=== PATIENT | female | born 1945 | race Caucasian/White ===

== ENCOUNTER 2021-12-10 08:12 | Day surgery (SDC) | payer MEDICARE, SELFPAY ==
[2021-12-02 11:39] VITALS: BMI 21.9
[2021-12-09 11:06] LABS: MANUAL DIFF FLAG NO
[2021-12-09 11:15] LABS: Basophils Absolute Auto 0.1 X10*3/uL (0.0-0.2); Basophils Percent Auto 0.8 % (0-2); Eosinophils Absolute Auto 0.3 X10*3/uL (0.0-0.4); Eosinophils Percent Auto 5.2 % (0-4); Hematocrit 37.2 % (37.0-47.0); Hemoglobin 11.3 g/dl (12.0-16.0); Imm Gran Abs Auto 0.04 X10*3/uL (0.00-0.03); Imm Gran Pct Auto 0.6 % (0.0-0.4); Lymphocytes Absolute Auto 1.4 X10*3/uL (1.2-4.9); Lymphocytes Percent Auto 22.6 % (20-40); Mean Corpuscular HGB Conc 30.4 g/dl (31.0-35.0); Mean Corpuscular Hemoglobin 26.7 pg (27.0-33.0); Mean Corpuscular Volume 87.9 fL (80.0-98.0); Mean Platelet Volume 9.8 fL (9.4-12.3); Monocytes Absolute Auto 0.7 X10*3/uL (0.1-1.2); Monocytes Percent Auto 10.6 % (2-11); Neutrophils Absolute Auto 3.7 x10*3/uL (2.0-8.3); Neutrophils Percent Auto 60.2 % (45-73); Platelet Count 333 X10*3/uL (160-400); Red Blood Count 4.23 X10*6/uL (4.20-5.50); Red Cell Distribution Width 14.6 % (11.0-16.0); White Blood Count 6.2 X10*3/uL (4.8-10.8)
[2021-12-09 11:26] LABS: Iron 43 mcg/dL (30-160); Percent Iron Saturation 15 % (15-50); Total Iron Binding Capacity 295 mcg/dL (228-428); Unsaturated Iron Binding 252 ug/dL
[2021-12-09 11:47] LABS: Ferritin 59 ng/mL (10-250)
--- NOTE | 2021-12-09 12:15 | P.CONAN_ITS ---
Documented by User: Gaby Alvarado NP 12/09/21 12:26 HPI - Anesthesia Eval Consult details Narrative: 76yo F for Upper Endoscopy T/C to patient. No allergy to propofol. 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 ? side effect of opioids. [facility] Past Medical History Medical History (Updated 12/10/21 @ 08:39 by Isela Pang, RN) Abdominal pain Benign tumor of submandibular gland Burning sensation of throat Heartburn Hoarseness Hyperlipidemia Osteoporosis Surgical History Surgical History (Updated 12/10/21 @ 08:39 by Isela Pang RN) Hx of colonoscopy Hx of inguinal hernia repair Social History Social History Advance Directives: No Advance Directives Information Provided: Yes Meds Allergies Allergy/AdvReac Type Severity Reaction Status Date / Time egg Allergy Unknown Verified 12/02/21 11:37 gluten Allergy Unknown Verified 12/02/21 11:37 lactose Allergy Unknown Verified 12/02/21 11:37 Penicillins Allergy Unknown Verified 12/02/21 11:37 procaine [From Novocain] Allergy Unknown Verified 12/02/21 11:37 12 hour nasal spray Allergy Unknown Uncoded 12/02/21 11:38 Exam Exam Date and Time: December 09, 2021 1215 Height,Weight and Vital Signs: Height 5 ft 3 in Weight 56.245 kg Pertinent Lab Results Pertinent Lab Results: Laboratory Tests 12/09/21 12/09/21 06:46 06:46 WBC 6.2 RBC 4.23 Hgb 11.3 L Hct 37.2 MCV 87.9 MCH 26.7 L MCHC 30.4 L RDW 14.6 Plt Count 333 MPV 9.8 Immature Gran % (Auto) 0.6 H Neut % (Auto) 60.2 Lymph % (Auto) 22.6 [place] % (Auto) 10.6 Eos % (Auto) 5.2 H Baso % (Auto) 0.8 Lymph # (Auto) 1.4 [place] # (Auto) 0.7 Eos # (Auto) 0.3 Baso # (Auto) 0.1 Abs Immat Gran (auto) 0.04 H Absolute Neuts (auto) 3.7 Absolute Nucleated RBC 0.000 Nucleated RBC % (auto) 0.0 Iron 43 TIBC 295 % Saturation 15 Unsat Iron Binding 252 Ferritin 59 Assessment and Plan Assessment Anesthesia Assessment: Chart Reviewed Documented by User: Jens Chandler MD 12/10/21 08:43 PMFSH Past Medical History Medical History (Updated 12/10/21 @ 08:39 by Isela Pang, RN) Abdominal pain Benign tumor of submandibular gland Burning sensation of throat Heartburn Hoarseness Hyperlipidemia Osteoporosis Family History Family history of problems with anesthesia: No Surgical History Surgical History (Updated 12/10/21 @ 08:39 by Isela Pang, RN) Hx of colonoscopy Hx of inguinal hernia repair History of Problems with Anesthesia: No Social History Social History Advance Directives: No Advance Directives Information Provided: Yes Meds Allergies Allergy/AdvReac Type Severity Reaction Status Date / Time egg Allergy Unknown Verified 12/02/21 11:37 gluten Allergy Unknown Verified 12/02/21 11:37 lactose Allergy Unknown Verified 12/02/21 11:37 Penicillins Allergy Unknown Verified 12/02/21 11:37 procaine [From Novocain] Allergy Unknown Verified 12/02/21 11:37 12 hour nasal spray Allergy Unknown Uncoded 12/02/21 11:38 Exam Airway Mallampati Class: II TM Dist: >3cm Neck ROM: Full Assessment and Plan Assessment Anesthesia Assessment: Anesthesia Plan Discussed Final Anesthetic Review Family History of Problems with Anesthesia: No History of Problems with Anesthesia: No NPO: Yes ASA Class: II Final Preanesthetic Review: No Changes in Pt Med Stat, Meds/Allgs Chart Reviewed, Consent Obtained/Reviewed and Anes Risks/Benef Reviewed Patient Risk: Low Procedure Risk: Low Anesthetic Plan Anesthetic Plan: MAC: Disposition: Standard PACU
[2021-12-10 08:52] VITALS: BP 155/68; PULSE 57; RESP 16; TEMP 36.1; O2SAT 96
[2021-12-10] MEDS: Lactated Ringers 1,000 ML 100 ML IVCONT (09:03)
--- NOTE | 2021-12-10 09:25 | MHC.SHP ---
Pre-Procedural Eval Section A Date of Service: 12/10/21 Section B Chief Complaint: reflux Details of Present Illness: see H&P nochanges Relevant Family History (Specify if Yes): No Relevant Social History: None Present Medications: None Medical History: No relevant PMH History of Previous Operations: No relevant previous surgery Allergies: Allergies Allergy/AdvReac Type Severity Reaction Status Date / Time egg Allergy Unknown Verified 12/10/21 08:44 gluten Allergy Unknown Verified 12/10/21 08:44 lactose Allergy Unknown Verified 12/10/21 08:44 Penicillins Allergy Unknown Verified 12/10/21 08:44 procaine [From Novocain] Allergy Unknown Verified 12/10/21 08:44 Review of Systems Sugical H&P ROS: Negative: Constitution, Cardiovascular, Respiratory, Neurological, Psychiatric, Hem-Onc, Allergic/Immunologic, Gastrointestinal, Genitourinary, Musculoskeletal, Integumentary, Endocrine and Eyes/Ears/Nose/Throat Exam Surgical H&P Exam: Normal: HEENT, Normal: Heart, Normal: Lungs, Normal: Extremities, Normal: Abdomen, Normal: Skin and Normal: Neurological Plan Diagnosis/Plan: Unchanged I have reviewed the history and physical and performed a pertinent physical examination on my patient. No changes have occurred unless specified.
[2021-12-10 09:43] VITALS: BP 141/64; PULSE 54; RESP 16; TEMP 36.6; O2SAT 100
--- NOTE | 2021-12-10 09:44 | P.BOP_ITS ---
Brief Operative Note Date of Service: 12/10/21 Pre-op diagnosis: gerd dysphagia Post-op diagnosis: same Procedure: egd Surgeon: Franklin Obregon Anesthesia: MAC Was an Customer Operations Specialist used for this Procedure?: No Estimated blood loss (mL): 2 Pathology: other (bxs antrum, egj) Condition: stable Disposition: PACU
[2021-12-10 09:58] VITALS: BP 152/66; PULSE 57; RESP 16; TEMP 36.6; O2SAT 100
--- NOTE | 2021-12-10 13:00 | OP_ITS ---
SURGEON: Franklin Obregon MD INDICATIONS: Gastroesophageal reflux disease and dysphagia. PREOPERATIVE DIAGNOSIS: POSTOPERATIVE DIAGNOSIS: PROCEDURE PERFORMED: ESTIMATED BLOOD LOSS: COMPLICATIONS: ANESTHESIA: ASSISTANTS: SPECIMENS: PROCEDURE: Upper endoscopy with biopsy. MEDICATIONS: Monitored anesthesia care. DESCRIPTION OF PROCEDURE: History and physical performed. The risks and benefits of the procedure were explained to the patient. Informed consent was obtained. The patient was placed in the left lateral decubitus position. The Olympus video gastroscope was introduced into the esophagus, stomach, and duodenum. Examination was performed. The scope was removed. She tolerated the procedure well and was taken to recovery in stable condition. FINDINGS: Esophagus: The esophagus was normal. There was no esophagitis. Biopsies were obtained from the EG junction. Stomach: The stomach was normal. There was no gastritis and no ulcer. Duodenum: The bulb and second portion were normal. Biopsies were obtained from the antrum of the stomach. IMPRESSION: Gastroesophageal reflux disease. RECOMMENDATION: Follow up the biopsy results. MD REILLY Joyner/MODL / [id number]
== END 2021-12-10 10:19 | disposition home or self-care (01) ==
PROVIDERS: Internal Medicine; PCP Internal Medicine Geriatric Medicine; Visit Provider Internal Medicine Gastroenterology
PROC: 0DJ08ZZ Inspection of Upper Intestinal Tract, Via Natural or Artificial Opening Endoscopic (ICD-10-PCS; CPT 43235; principal; 2021-12-10 09:30)
DX: K21.9 Gastro-esophageal reflux disease without esophagitis (principal); R13.10 Dysphagia, unspecified; R10.9 Unspecified abdominal pain; E78.5 Hyperlipidemia, unspecified; M81.0 Age-related osteoporosis without current pathological fracture; Z87.19 Personal history of other diseases of the digestive system; Z79.899 Other long term (current) drug therapy; Z88.0 Allergy status to penicillin; Z88.8 Allergy status to other drugs, medicaments and biological substances
CPT/HCPCS: 43239; 36415; 82728; 83540; 85025; 88305; 88342